=== PATIENT | female | born 1955 | race Caucasian/White ===

== ENCOUNTER 2017-01-30 11:34 | Emergency (ER) | payer BC ==
[~2017-01-30] VITALS: Ht 177.8 cm; Wt 85.9 kg
[2017-01-30 12:26] LABS: BLOOD UREA NITROGEN 11 mg/dL (7-18)
[2017-01-30 12:31] LABS: IS PT STATUS REG ER OR PRE ER? YES
[2017-01-30 13:43] VITALS: BP 129/65
== END 2017-01-30 13:47 | disposition home or self-care (01) ==
LOC: ED 13:41
DX: R53.1 Weakness (principal); R11.0 Nausea
CPT/HCPCS: 36415; 71010; 80048; 82040; 84443; 84484; 85025; 93005; 99285

== ENCOUNTER → 2017-04-10 | Outpatient (CLI) | payer BC | END | disposition home or self-care (01) | LOC: CFH 13:48 | PROVIDERS: ATTEND Family Medicine | DX: Z12.31 Encounter for screening mammogram for malignant neoplasm of breast (principal); Z13.820 Encounter for screening for osteoporosis; M85.88 Other specified disorders of bone density and structure, other site | CPT/HCPCS: 77063; 77080; G0202 ==

== ENCOUNTER → 2019-05-03 | Outpatient (CLI) | payer OTHER | END | disposition home or self-care (01) | LOC: CFH 14:02 | PROVIDERS: ATTEND Family Medicine | DX: Z12.31 Encounter for screening mammogram for malignant neoplasm of breast (principal); N64.89 Other specified disorders of breast | CPT/HCPCS: 77063; 77067 ==

== ENCOUNTER → 2019-08-03 | Outpatient (CLI) | payer BC, OTHER | END | disposition home or self-care (01) | LOC: CFH 07:52 | PROVIDERS: ATTEND Nurse Practitioner Family | DX: R92.2 Inconclusive mammogram (principal) | CPT/HCPCS: 77065 ==

== ENCOUNTER 2019-08-18 07:26 | Outpatient (CLI) | payer OTHER ==
[2019-08-18] MEDS ORDERED: SODIUM BICARBONATE 4.0%, 5ML ONE (11:26)
[2019-08-18] MEDS ORDERED: LIDOCAINE 1%-EPI 1:100K, 20ML ONE (11:26)
[2019-08-18] MEDS ORDERED: LIDOCAINE 1%, 20ML ONE (11:26)
== END 2019-08-18 23:59 | disposition home or self-care (01) ==
LOC: CFH 07:26
PROVIDERS: ATTEND Nurse Practitioner Family
DX: R92.0 Mammographic microcalcification found on diagnostic imaging of breast (principal)
CPT/HCPCS: 19081; 77065; 88305; J3490